=== PATIENT | female | born 1960 | race Caucasian/White ===

== ENCOUNTER 2017-02-18 08:54 | Day surgery (SDC) | payer OTHER ==
[~2017-02-18] VITALS: Ht 157.5 cm; Wt 74.8 kg
[2017-02-18 09:48] VITALS: Ht 157.5 cm; Wt 74.8 kg
[2017-02-18] MEDS ORDERED: ATOR80TA75 PO (09:55)
[2017-02-18] MEDS ORDERED: ATEN50TA PO (09:55)
[2017-02-18 10:29] VITALS: BP 141/81; PULSE 77; RESP 20
[2017-02-18] MEDS ORDERED: MIDAZOLAM 1 MG/ML 2 ML INJ ONE ×3 (10:47)
[2017-02-18] MEDS ORDERED: FENTAnyl 50 MCG/ML VIAL ONE (10:47)
--- NOTE | 2017-02-18 11:07 | GILP ---
DATE OF PROCEDURE: NAME OF PROCEDURE: Colonoscopy. SURGEON: Kusum Neumann MD PREOPERATIVE DIAGNOSIS: Screening colonoscopy. POSTOPERATIVE DIAGNOSES 1. Colonoscopy all the way to the cecum. 2. Diverticulosis of the colon. 3. Internal hemorrhoids. 4. No colon neoplasm was identified. INDICATION FOR THE PROCEDURE: Ms. Orly ayala is a 57-year-old female patient who was scheduled for screening colonoscopy. The procedure and possible complications are well explained to the patient, she understood and conse nted to the procedure. DESCRIPTION OF PROCEDURE: Under the influence of fentanyl and Versed, the colonoscope was carefully introduced in the rectum and under direct vision, it was advanced all the way to the cecum. FINDINGS: The patient had diverticulosis of the colon. She also had internal hemorrhoids. No colo n neoplasm was identified. She tolerated the procedure very well and there was no complication from the procedure. At the end of the procedure, she was awake with stable vital signs and she was discharged home to the care of h er family. IMPRESSION: 1. Colonoscopy all the way to the cecum. 2. Diverticulosis of the colon. 3. Internal hemorrhoids. 4. No colon neoplasm was identified. PLAN: Next screening colonoscopy in 10 years. The patient was advised high fiber diet. Dictated By: KUSUM ADAME/DOMI Conf#: [id number] DID#: [id number]
[2017-02-18 11:16] VITALS: BP 132/71; RESP 20
== END 2017-02-18 11:43 | disposition home or self-care (01) ==
LOC: GIL 08:54
PROVIDERS: ATTEND Internal Medicine Gastroenterology
DX: Z12.11 Encounter for screening for malignant neoplasm of colon (principal); K64.8 Other hemorrhoids; K57.90 Diverticulosis of intestine, part unspecified, without perforation or abscess without bleeding; I10 Essential (primary) hypertension
CPT/HCPCS: 45380; J2250; J3010; Z7610